=== PATIENT | female | born 1995 | race Caucasian/White ===

== ENCOUNTER 2017-04-14 00:06 | Emergency (ER) | payer MEDICAID ==
[2017-04-14 00:24] VITALS: BP 142/90
[2017-04-14] MEDS ORDERED: Sodium Phosphate,Monobasic/Sodium Phosphate,Dibasic Enema 133 ML Bottle RECTAL ONE (01:15)
[2017-04-14] MEDS ORDERED: Magnesium Citrate Solution 296 ML Bottle ONE (01:20)
--- NOTE | 2017-04-14 07:47 | CR ---
DATE OF SERVICE: 04/14/17 CLINICAL DATA: Abdominal pain PA CHEST: The heart size is normal. The lungs are mildly hyperexpanded but clear. No pneumothorax. No pleural effusions. No areas of consolidation. The exam is otherwise negative. SUPINE AND UPRIGHT ABDOMEN: No evidence of obstruction or ileus. No free air. [id number] MTDD
--- NOTE | 2017-04-14 15:03 | ER ---
HPI: A 21-year-old female here with complaints of abdominal pain that started earlier this morning. It woke her up. She states the pain has been intermittent in nature all day but now tonight she had 1 episode that was more severe. The patient denies any illness. She has not been running a fever. She has not had any recent falls or injuries. She has not had any problems with nausea, vomiting, or diarrhea and has not been running a fever. The patient denies any previous history of a similar nature. OBJECTIVE: GENERAL APPEARANCE: The patient is awake and alert. No obvious distress. VITAL SIGNS: Reviewed showing a low-grade temp of 99.2, pulse is 122, blood pressure 142/90. Physical exam, LUNGS: Are clear. There is no CVA tenderness with percussion. ABDOMEN: Soft. There is some mild tenderness in the upper quadrants more so on the upper right quadrant with minimal tenderness with palpation involving the upper left quadrant. Bowel sounds are present, but hypoactive. SKIN: Warm and dry. LAB AND X-RAY: Lab work includes a CBC, CMP, and UA, they are normal. Urine HCG is negative. X-rays include a flat and upright of the abdomen with a PA chest. The patient does have a significant amount of stool involving the descending and sigmoid colon and she has a lot of bowel gas involving the transverse and distal ascending colon. DIAGNOSIS: Constipation. TREATMENT PLAN: A Fleets enema was given here in the emergency room. The patient will also be given a bottle of magnesium citrate. She is to use tomorrow morning and she is to increase her liquid intake and followup should be over the next day or two if her symptoms are not resolved. CRS/MODL /[id number]
== END 2017-04-14 01:50 | disposition home or self-care (01) ==
LOC: LB.ED 00:06
DX: K59.00 Constipation, unspecified (principal)
CPT/HCPCS: 36415; 74022; 80053; 81001; 81025; 85025; 99284; A9270